=== PATIENT | male | born 1970 | race Caucasian/White ===

== ENCOUNTER 2018-03-28 08:51 | Day surgery (SDC) | payer OTHER ==
[~2018-03-28 08:51] MED LIST: CIPROFLOXACIN 400 MG in D5W 200 ML IVPB
[2018-03-28] MEDS ORDERED: LIDOCAINE 2% (SDV) 5 ML INJ (10:05)
[2018-03-28] MEDS ORDERED: FENTAnyl 50 MCG/ML VIAL (10:05)
[2018-03-28] MEDS ORDERED: PROPOFOL 40 ML (10:05)
[2018-03-28] MEDS ORDERED: MIDAZOLAM 1 MG/ML 2 ML INJ (10:05)
[2018-03-28] MEDS ORDERED: FAMOTIDINE 20 MG INJ (10:06)
[2018-03-28] MEDS ORDERED: DEXAMETHASONE 4 MG/ML 1 ML INJ (10:06)
[2018-03-28] MEDS ORDERED: ONDANSETRON 4 MG INJ (10:06)
[2018-03-28] MEDS ORDERED: morphine (1 MG/ML) 10ML SYRINGE IV ×2 (11:00)
[2018-03-28] MEDS ORDERED: FENTAnyl 50 MCG/ML VIAL IV ×2 (11:00)
[2018-03-28] MEDS ORDERED: ONDANSETRON 4 MG INJ IV (11:00)
[2018-03-28] MEDS ORDERED: MEPERIDINE 25 MG INJ IV (11:00)
[2018-03-28] MEDS ORDERED: OXYCODONE/ACETAMINOPHEN (5/325) TAB PO ×2 (11:00)
[2018-03-28] MEDS ORDERED: HYDROmorphONE 1 MG/5 ML IV SYRINGE IV ×2 (11:00)
[2018-03-28] MEDS ORDERED: DIPHENHYDRAMINE 50 MG INJ IV (11:00)
[2018-03-28] MEDS ORDERED: LABETALOL HCL 20MG INJ IV (11:00)
[2018-03-28] MEDS ORDERED: EPHEDrine SULFATE 50 MG/5 ML SYG ×2 (11:18→11:42)
[2018-03-28] MEDS: EPHEDrine SULFATE 50 MG/5 ML SYG IV (11:42)
[2018-03-28] MEDS: ALBUTEROL 0.083% (NEB) 2.5 MG/3 ML AMP HHN (12:28)
== END 2018-03-28 13:22 | disposition home or self-care (01) ==
LOC: SDS 08:51
DX: N21.0 Calculus in bladder (principal); I10 Essential (primary) hypertension; N40.0 Benign prostatic hyperplasia without lower urinary tract symptoms
CPT/HCPCS: 52000